=== PATIENT | female | born 1970 | race Caucasian/White ===

== ENCOUNTER 2024-08-26 04:45 | Emergency (ER) | payer SELFPAY ==
[~2024-08-26] VITALS: Ht 167.6 cm; Wt 65.8 kg
[2024-08-26] MEDS ORDERED: IBUPROFEN 600 MG TABLET ONE (05:28)
[2024-08-26] MEDS: IBUPROFEN 600 MG TABLET PO ONE (05:49)
[2024-08-26 06:01] LABS: BASOPHILS % (AUTO) 0.6 % (0.0-2.0); EOSINOPHILS % (AUTO) 0.7 % (0.0-7.0); HEMATOCRIT 39.2 % (31.2-41.9); LYMPHOCYTES # (AUTO) 1.2 K/uL (0.8-4.8); LYMPHOCYTES % (AUTO) 17.2 % (20.5-51.5); MEAN CORPUSCULAR HEMOGLOBIN 28.9 uug (24.7-32.8); MEAN CORPUSCULAR HGB CONC 33 g/dL (32.3-35.6); MEAN CORPUSCULAR VOLUME 87.3 fL (75.5-95.3); MONOCYTES # (AUTO) 0.6 K/uL (0.1-1.30); MONOCYTES % (AUTO) 8.6 % (0.0-11.0); NEUTROPHILS # (AUTO) 5.3 K/uL (1.8-8.9); NEUTROPHILS % (AUTO) 72.9 % (38.5-71.5); PLATELET COUNT (AUTO) 304 K/uL (179-408); RED BLOOD CELL COUNT(AUTO) 4.49 MIL/uL (3.63-4.92); RED CELL DISTRIBUTION WIDTH 15.4 % (12.3-17.7); WHITE BLOOD COUNT (AUTO) 7.2 K/uL (3.8-11.8)
[2024-08-26 06:12] LABS: CALCIUM 9.7 mg/dL (8.5-10.1); CREATININE 0.6 mg/dL (0.6-1.3); POTASSIUM 3.8 mmol/L (3.5-5.1)
[2024-08-26 06:13] LABS: DIFFERENTIAL COMMENT 1
[2024-08-26 06:17] LABS: ALBUMIN 3.2 g/dL (3.4-5.0); BILIRUBIN,TOTAL 0.4 mg/dL (0.2-1.0); TOTAL PROTEIN, SERUM 6.9 g/dL (6.4-8.2)
[2024-08-26 06:18] LABS: C-REACTIVE PROTEIN 3.47 mg/dL (0.00-0.30)
[2024-08-26 06:56] VITALS: BP 121/71; TEMP 98; O2SAT 96
== END 2024-08-26 06:56 | disposition home or self-care (01) ==
LOC: ER 04:50
DX: U07.1 COVID-19 (principal); J20.9 Acute bronchitis, unspecified; G89.29 Other chronic pain; H92.03 Otalgia, bilateral; K76.0 Fatty (change of) liver, not elsewhere classified; Z87.442 Personal history of urinary calculi; Z88.5 Allergy status to narcotic agent
CPT/HCPCS: 36415; 71045; 83605; 85025; 86140; A4606; A4663